=== PATIENT | male | born 2000 | race Caucasian/White ===

== ENCOUNTER 2019-09-18 18:11 | Emergency (ER) | payer OTHER ==
[~2019-09-18] VITALS: Ht 175.3 cm; Wt 68.2 kg
[2019-09-18 18:29] VITALS: BP 137/95
[2019-09-18] MEDS ORDERED: sulfamethoxazole/trimethoprim DS (800/160mg) tablet PO ONE (19:25)
[2019-09-18] MEDS ORDERED: TETanus/Pertussis (Acell)/Diphther VAC/PF (Tdap-Adult) 0.5ml syringe IMVAC ONE (19:25)
[2019-09-18] MEDS ORDERED: SULF1TAB49 PO (19:27)
== END 2019-09-18 19:43 | disposition home or self-care (01) ==
LOC: ER 18:12
DX: L03.116 Cellulitis of left lower limb (principal)
CPT/HCPCS: 90471; 90715; 99283